=== PATIENT | male | born 1990 | race Caucasian/White ===

== ENCOUNTER 2019-08-16 10:35 | Emergency (ER) | payer SELFPAY ==
[~2019-08-16] VITALS: Ht 180.3 cm; Wt 81.6 kg
[2019-08-16 10:46] VITALS: Ht 180.3 cm; Wt 81.6 kg
[2019-08-16 11:23] LABS: BASOPHIL % 0.4 % (0-2); PLATELET COUNT 166 x10^3mcL (130-400)
[2019-08-16 11:27] LABS: CALCIUM 8.7 mg/dL (8.5-10.1); CARBON DIOXIDE 28.8 mmol/L (21-32); CHLORIDE SERUM 107 mmol/L (98-107); CREATININE SERUM 0.9 mg/dL (0.7-1.3); GFR1 > 60 mL/min; GLUCOSE SERUM 106 mg/dL (74-106); POTASSIUM SERUM 3.9 mmol/L (3.5-5.1); SODIUM SERUM 141 mmol/L (136-145)
[2019-08-16 11:43] LABS: ALBUMIN 3.3 g/dL (3.4-5.0); ALKALINE PHOSPHATASE 82 U/L (46-116); ALT/SGPT 100 U/L (16-63); AST/SGOT 53 U/L (15-37); BILIRUBIN TOTAL 0.57 mg/dL (0.20-1.00); CHOLESTEROL 316 mg/dL (<200); HDL CHOLESTEROL 36 mg/dL (40-60); LIPASE 166 IU/L (73-393); MAGNESIUM 1.9 mg/dL (1.8-2.4); T4(THYROXINE) 3.9 ug/dL (4.7-13.3); TOTAL PROTEIN, SERUM 6.8 g/dL (6.4-8.2)
[2019-08-16 12:32] VITALS: BP 126/88
== END 2019-08-16 12:15 | disposition short-term general hospital (02) ==
LOC: ED 10:35
PROVIDERS: Emergency Medicine
DX: I24.9 Acute ischemic heart disease, unspecified (principal); E78.00 Pure hypercholesterolemia, unspecified
CPT/HCPCS: 83880; J0282

== ENCOUNTER 2019-09-11 10:16 | Emergency (ER) | payer MEDICAID ==
[~2019-09-11] VITALS: Ht 167.6 cm; Wt 89.4 kg
[2019-09-11 10:26] VITALS: Ht 167.6 cm; Wt 89.4 kg
[2019-09-11 11:08] VITALS: BP 122/86
== END 2019-09-11 11:08 | disposition home or self-care (01) ==
LOC: ED 10:16
DX: R07.89 Other chest pain (principal); F41.9 Anxiety disorder, unspecified; E78.00 Pure hypercholesterolemia, unspecified